=== PATIENT | female | born 1970 | race Caucasian/White ===

== ENCOUNTER → 2017-09-12 | Outpatient (CLI) | payer BC ==
[2017-09-12 16:39] VITALS: BP 125/82; PULSE 68; TEMP 98; BMI 32.4
--- NOTE | 2017-09-12 17:31 | P.HPOB ---
History of Present Illness H&P Date: 09/12/17 Chief Complaint: Patient is here for routine gynecologic exam. This is a 47-year-old G3 PIII with an LMP of 09/05/2017. The patient's last normal menstrual period was in July 2014. She is currently not sexually active and is not seeing anybody at this time. Previous FSH testing on 07/21/2015 was 67 and consistent with early menopause. She previously had hot flashes but these have resolved. She states the bleeding that started on 09/05/2017 was very much like a menstrual period, and is now like the end of a period. She did feel that this was slightly more crampy than what she remembered her periods being like. She is otherwise without gynecologic complaints. Review of Systems The patient's weight has been stable over the last year. She denies respiratory , cardiac, or G.I. problems. Past Medical History Past Medical History: No Reported History Additional Past Medical History / Comment(s): Past STOCKKEEPER history: she has no history of STDs. Her last Pap smear on 07/21/2015 showed ascus with positive high-risk HPV. Colposcopic examination at the time was done by Dr. Paredes and was benign. History of Any Multi-Drug Resistant Organisms: None Reported Past Surgical History: No Surgical Hx Reported Past Psychological History: No Psychological Hx Reported Smoking Status: Never smoker Past Alcohol Use History: Rare (2 per month) Past Drug Use History: None Reported Additional History: She has been twice is currently not seeing anybody at this time. 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 - Past Family History Mother Family Medical History: Diabetes Mellitus Additional Family Medical History / Comment(s): Maternal grandmother had breast cancer. Father Family Medical History: CVA/TIA Additional Family Medical History / Comment(s): Paternal grandmother had heart disease. Medications and Allergies Home Medications Medication Instructions Recorded Confirmed Type busPIRone HCl [Buspar] mg PO DIRECTED 09/12/17 History Allergies Allergy/AdvReac Type Severity Reaction Status Date / Time amoxicillin AdvReac Severe Rash/Hives Unverified 09/12/17 16:18 fexofenadine [From Amber-D] AdvReac Severe Rash/Hives Unverified 09/12/17 16: 18 pseudoephedrine AdvReac Severe Rash/Hives Unverified 09/12/17 16:18 [From Amber-D] Exam Vital Signs Temp Pulse BP 09/12/17 16:30 98.0 F 68 125/82 Intake and Output 09/12/17 09/12/17 09/12/17 06:59 14:59 22:59 Other: Weight 91.172 kg Height 5'6", BMI 32.4. This is a well-developed well-nourished white female who is alert and oriented times 3 in no acute distress. HEENT: Within normal limits. NECK: Supple without mass or thyromegaly. CHEST AND LUNGS: Clear to auscultation. HEART: Regular rate and rhythm. BREASTS: Are without mass or discharge. AXILLARY EXAM: Negative for adenopathy. BACK: Negative for CVA tenderness. ABDOMEN: Soft, nontender, without palpable masses. PELVIC EXAM: Normal external genitalia with dried menstrual blood. Cervix and vagina appear normal with small amount of menstrual blood. There is otherwise no unusual discharge. There is no evidence of prolapse. The uterus is midposition, nongravid size and nontender. There are no palpable adnexal masses or tenderness. RECTAL EXAM: rectovaginal exam is negative for mass or tenderness testing for cold blood was deferred because of the menstrual blood. EXTREMITIES: Nontender. IMPRESSION: 1. 47-year-old female with menstrual type bleed after 2 years of amenorrhea. Postmenopausal bleeding. This possibly could represent some remaining ovarian function, however I believe workup is still necessary. 2. Normal gynecologic exam. 3. Previous ascus Pap smear with positive high-risk HPV testing and benign colposcopic examination. PLAN: 1. Pap smear was performed. High-risk HPV testing will also be included (co- test). 2. Breast awareness was discussed. 3. Patient is scheduled for her screening mammogram on 10/06/2017. The order slip was given to the patient. 4. The patient will be scheduled for endometrial biopsy. If this is benign without hyperplasia, consider conservative management with observation. If hyperplasia without atypia or recurrent bleeding with benign pathology, consider cyclic progestogen treatment. If hyperplasia with atypia or carcinoma , she will be referred for hysterectomy. The endometrial biopsy will be tentatively scheduled for tomorrow. 5. She will also return annually and PRN.
== END | disposition home or self-care (01) ==
LOC: WWCWWP 16:00
PROVIDERS: ATTEND Obstetrics & Gynecology
DX: Z53.9 Procedure and treatment not carried out, unspecified reason (principal)

== ENCOUNTER → 2017-09-13 | Day surgery (SDC) | payer BC ==
--- NOTE | 2017-09-13 13:25 | P.PCN ---
Date of Procedure: 09/13/17 Preoperative Diagnosis: Postmenopausal bleeding Postoperative Diagnosis: Postmenopausal bleeding Procedure(s) Performed: Endometrial biopsy Anesthesia: none Surgeon: Curtis Marquez Estimated Blood Loss (ml): 1 Pathology: other (Endometrial tissue) Condition: stable Disposition: same day Indications for Procedure: This was a 47-year-old G3 PIII with the last normal menstrual period of 2014. Patient had menstrual like bleeding which started on 09/05/2017. The bleeding is now light. Endometrial sampling was done for postmenopausal bleeding. Operative Findings: With bimanual exam, the uterus is mid-positioned, non-gravid size and nontender. There are no palpable adnexal masses or tenderness. The uterus sounded to 8 cm. Small to moderate tissue was obtained. Description of Procedure: The endometrial biopsy procedure was described to the patient. All of her questions were answered. The patient was placed in the lithotomy position. Bimanual examination was performed. The uterus is mid-positioned and is non- gravid size. The speculum was inserted and the cervix and vagina were prepped with betadine solution. The 3mm endometrial biopsy curette was placed to the fundus without difficulty. The uterus sounded to 8 cm. A [id number] rotating motion was used and a small to moderate amount of tissue was obtained and sent for pathological examination. The patient tolerated the procedure well. There were no complications. The post procedure vitals are as follows: blood pressure 155/94. pulse 70, temperature 97.8. Post procedure instructions were given to the patient.
[2017-09-13 13:58] VITALS: BP 152/85; PULSE 67; TEMP 97.1; BMI 32.4
--- NOTE | 2017-09-19 16:11 | P.PN ---
Progress Note - Text Progress Note Date: 09/19/17 OUTPATIENT FOLLOW-UP NOTE TEST(S)/RESULTS: endometrial biopsy pathology from 09/13/2017 showed disordered proliferative lining. Pap smear was unsatisfactory because of red blood cells. High-risk HPV was negative. METHOD OF NOTIFICATION: the patient was notified by phone. PATIENT COMMENTS: the patient understands the results and the need to repeat the Pap smear. DIAGNOSIS: benign endometrial biopsy with dysfunctional uterine bleeding. DISCUSSION: we have discussed how this can represent small ovarian function which can make the uterine lining grow slowly with time. PLAN: cyclic progestin therapy. An electronic prescription for Provera 10 mg, 1 PO Q day on days 15 through 26 of the month will be sent to [facility] pharmacy in [place]. [phone] with no refills. The patient will keep a menstrual calendar. She will return in 3 months for reevaluation and to repeat the Pap smear.
== END ==
LOC: WWCWWP 12:07
PROVIDERS: ATTEND Obstetrics & Gynecology
DX: N95.0 Postmenopausal bleeding (principal)
CPT/HCPCS: 88305

== ENCOUNTER → 2017-10-06 | Outpatient (CLI) | payer BC ==
--- NOTE | 2017-10-11 09:50 | MM ---
Reason for exam: screening (asymptomatic). Last mammogram was performed 2 years and 3 months ago. History: Family history of breast cancer in grandmother at age 65. Physical Findings: A clinical breast exam by your physician is recommended on an annual basis and results should be correlated with mammographic findings. MG Screening Mammo w CAD Bilateral CC and MLO view(s) were taken. Technologist: Justine Gómez RT (R)(M) Prior study comparison: July 21, 2015, bilateral MG screening mammo w CAD. There are scattered fibroglandular densities. No significant changes when compared with prior studies. ASSESSMENT: Negative, BI-RAD 1 RECOMMENDATION: Routine screening mammogram of both breasts in 1 year.
== END | disposition home or self-care (01) ==
LOC: RADMAMWWP 07:08
PROVIDERS: ATTEND Obstetrics & Gynecology
DX: Z12.31 Encounter for screening mammogram for malignant neoplasm of breast (principal)
CPT/HCPCS: 77067

== ENCOUNTER 2018-10-04 06:47 | Day surgery (SDC) | payer BC ==
[2018-10-02 13:15] VITALS: BMI 32.3
[~2018-10-04 06:47] MED LIST: LACTATED RINGERS 1,000 ML IV SCH
[2018-10-04 07:18] VITALS: TEMP 97.3
[2018-10-04] MEDS ORDERED: PROPOFOL 10 MG/ML 20 ML VIAL IV ONE (07:47)
[2018-10-04] MEDS ORDERED: LIDOCAINE 1% INJ 10MG/ML (20 ML MDV) ONE (07:47)
--- NOTE | 2018-10-04 07:55 | P.GSHP ---
History of Present Illness H&P Date: 10/04/18 Chief Complaint: Screening colonoscopy This is a 48-year-old female who presents today for screening colonoscopy. She denies any significant GI complaints. Past Medical History Past Medical History: No Reported History Additional Past Medical History / Comment(s): SCREENING History of Any Multi-Drug Resistant Organisms: None Reported Past Surgical History: No Surgical Hx Reported Past Anesthesia/Blood Transfusion Reactions: No Reported Reaction Smoking Status: Never smoker - Past Family History Mother Family Medical History: Diabetes Mellitus Additional Family Medical History / Comment(s): Maternal grandmother had breast cancer. Father Family Medical History: CVA/TIA Additional Family Medical History / Comment(s): Paternal grandmother had heart disease. Medications and Allergies Home Medications Medication Instructions Recorded Confirmed Type busPIRone HCl [Buspar] 5 mg PO DAILY 09/12/17 10/04/18 History Allergies Allergy/AdvReac Type Severity Reaction Status Date / Time amoxicillin AdvReac Severe Rash/Hives Unverified 10/02/18 13:05 fexofenadine [From Amber-D] AdvReac Severe Rash/Hives Unverified 10/02/18 13:05 pseudoephedrine AdvReac Severe Rash/Hives Unverified 10/02/18 13:05 [From Amber-D] Surgical - Exam Vital Signs Temp Pulse Resp BP Pulse Ox 97.3 F L 69 17 149/90 95 10/04/18 07:16 10/04/18 07:16 10/04/18 07:16 10/04/18 07:16 10/04/18 07:16 - General well developed, well nourished, no distress - Eyes PERRL - ENT normal pinna - Neck no masses - Respiratory normal expansion - Cardiovascular Rhythm: regular - Abdomen Abdomen: soft, non tender Assessment and Plan Assessment: We'll perform screening colonoscopy.
--- NOTE | 2018-10-04 08:14 | P.OP ---
Date of Procedure: 10/04/18 Preoperative Diagnosis: Screening colonoscopy Postoperative Diagnosis: Normal colon Procedure(s) Performed: Colonoscopy Anesthesia: MAC Surgeon: Jose Malik Pathology: none sent Condition: stable Disposition: PACU Description of Procedure: PROCEDURE: The patient was placed on the endoscopy table in the lateral position. Digital rectal examination was performed which revealed no abnormalities. . Flexible colonoscope was then placed in the patient's anus and passed throughout the colon. The scope could not be placed into the ileocecal valve secondary to tortuosity valve. At this point scope was withdrawn. The , ascending, transverse, descending and sigmoid colon were normal. The rectum was normal as well. There were no masses, polyps or diverticula noted in the entire colon.
[2018-10-04 08:33] VITALS: RESP 18
[2018-10-04 08:40] VITALS: BP 139/82; PULSE 68
== END 2018-10-04 08:47 | disposition home or self-care (01) ==
LOC: ORWHC2ENDO 06:47
PROVIDERS: ATTEND Surgery
DX: Z12.11 Encounter for screening for malignant neoplasm of colon (principal); Z79.899 Other long term (current) drug therapy; Z88.0 Allergy status to penicillin; Z88.8 Allergy status to other drugs, medicaments and biological substances; Z83.3 Family history of diabetes mellitus; Z82.49 Family history of ischemic heart disease and other diseases of the circulatory system
CPT/HCPCS: G0121; J2001; J2704

== ENCOUNTER → 2021-04-09 | Outpatient (CLI) | payer BC ==
--- NOTE | 2021-04-09 12:20 | NM ---
EXAMINATION TYPE: NM stress lexiscan cardiolite DATE OF EXAM: 04/09/2021 COMPARISON: NONE HISTORY: I20.8 R06.00 R06.02 R07.89 TECHNIQUE: After the intravenous administration of 9.9 mCi Tc 99m Sestamibi - Cardiolite resting SPE CT images acquired 45 minutes post injection. The patient received 0.4mg Lexiscan, 25.2 mCi Tc 99m Sestamibi - Stress images obtained [address] injection FINDINGS: Review of stress and rest SPECT images demonstrates decreased perfusion inferoapical wall. Stress-ind uced ischemia is not excluded. Gated analysis shows normal wall motion with an estimated left ventric ular ejection fraction of 57 %. IMPRESSION: decreased perfusion inferoapical wall. Stress-induced ischemia is not excluded.
--- NOTE | 2021-04-09 13:17 | EST ---
EXERCISE STRESS AGE: 31 SEX: F HT: 4'8" WT: 210 lbs. PROTOCOL: Lexiscan STAGE: NA DURATION OF EXERCISE: NA HEART RATE REST: 92 BLOOD PRESSURE REST: 150/91 MAXIMUM HEART RATE ACHIEVED: 119 MAXIMUM BLOOD PRESSURE: 150/91 85% MPHR: 142 100% MPHR: 167 METS: NA INDICATIONS: Chest pain CLINICAL INFORMATION: Baseline rhythm is sinus mechanism, rate of 92, left bundle branch block. Baseline blood pressure 150/91 mmHg. Patient received injection of Lexiscan. Electrocardiographic monitoring revealed no evidence of diagnostic ischemic ST deviation. Cardiolite was injected per protocol. CONCLUSION: 1. Nondiagnostic electrocardiograph stress testing. 2. Nuclear images will be reported separately. MMODL / IJN: [id number] /
== END | disposition home or self-care (01) ==
LOC: RADNMMAIN 07:51
PROVIDERS: ATTEND Family Medicine
DX: I20.8 Other forms of angina pectoris (principal); R06.00 Dyspnea, unspecified; R06.02 Shortness of breath; R07.89 Other chest pain
CPT/HCPCS: 93017; 78452; A9500

== ENCOUNTER 2022-10-03 19:02 | Emergency (ER) | payer BC ==
--- NOTE | 2022-10-03 19:09 | ED ---
General Adult HPI - General Source: RN notes reviewed <Eloisa Drake - Last Filed: 10/03/22 19:07> <Silvana Randle - Last Filed: 10/06/22 16:56> - General Stated complaint: fall-wrist injury Time Seen by Provider: 10/03/22 19:07 - History of Present Illness Initial comments: 52 year old female with no significant past medical history presents to the emergency department with left wrist pain. She fell while doing yard work and slipped in mud. Denies hitting her head, LOC, anticoagulation. (Eloisa Drake) 52-year-old female presenting with chief complaint of left wrist pain. Patient states that she was doing yard work when she slipped on Monday and fell. She denies any head injury, loss of consciousness, use of blood thinners. No other extremities affected. No numbness or tingling. No obvious deformity. No bruising. (Silvana Randle) - Related Data Home Medications Medication Instructions Recorded Confirmed busPIRone HCl [Buspar] 5 mg PO DAILY 09/12/17 10/04/18 Allergies Allergy/AdvReac Type Severity Reaction Status Date / Time amoxicillin AdvReac Severe Rash/Hives Verified 10/03/22 19:11 fexofenadine [From Amber-D] AdvReac Severe Rash/Hives Verified 10/03/22 19:11 pseudoephedrine AdvReac Severe Rash/Hives Verified 10/03/22 19:11 [From Amber-D] Review of Systems ROS Other: All systems not noted in ROS Statement are negative. <Eloisa Drake - Last Filed: 10/03/22 19:07> ROS Other: All systems not noted in ROS Statement are negative. <Silvana Randle - Last Filed: 10/06/22 16:56> ROS Statement: Those systems with pertinent positive or pertinent negative responses have been documented in the HPI. Past Medical History Past Medical History: No Reported History Additional Past Medical History / Comment(s): SCREENING History of Any Multi-Drug Resistant Organisms: None Reported Past Surgical History: No Surgical Hx Reported Past Anesthesia/Blood Transfusion Reactions: No Reported Reaction Past Psychological History: No Psychological Hx Reported Past Alcohol Use History: Rare Past Drug Use History: None Reported - Past Family History Mother Family Medical History: Diabetes Mellitus Additional Family Medical History / Comment(s): Maternal grandmother had breast cancer. Father Family Medical History: CVA/TIA Additional Family Medical History / Comment(s): Paternal grandmother had heart disease. <Eloisa Drake - Last Filed: 10/03/22 19:07> General Exam <Eloisa Drake - Last Filed: 10/03/22 19:07> Limitations: no limitations General appearance: alert, in no apparent distress Head exam: Present: atraumatic, normocephalic, normal inspection Eye exam: Present: normal appearance, EOMI. Absent: scleral icterus, periorbital swelling Neck exam: Present: normal inspection, full ROM Respiratory exam: Absent: respiratory distress Left Forearm Wrist exam: Present: normal inspection, tenderness. Absent: full ROM, swelling, deformity, tenderness over anatomical snuff box Neurological exam: Present: alert, oriented X3, CN II-XII intact Psychiatric exam: Present: normal affect, normal mood Skin exam: Present: warm, dry, intact, normal color. Absent: rash <Silvana Randle - Last Filed: 10/06/22 16:56> - General Exam Comments Initial Comments: Visual Physical Exam Vital signs reviewed General: Well-appearing, nontoxic, no acute distress. Head: Normocephalic, atraumatic Eyes: PERRLA, EOMI ENT: Airway patent Chest: Nonlabored breathing Skin: No visual rash, normal skin tone Neuro: Alert and oriented 3 Musculoskeletal: No gross abnormalities I performed the quick note portion of this exam, verbal signature Eloisa Drake PA-C (Eloisa Drake) Course Vital Signs 10/03/22 10/03/22 19:07 21:05 Temperature 98.3 F 98.2 F Pulse Rate 84 70 Respiratory 20 18 Rate Blood Pressure 156/93 148/90 O2 Sat by Pulse 99 99 Oximetry Medical Decision Making <Silvana Randle - Last Filed: 10/06/22 16:56> - Medical Decision Making Was pt. sent in by a medical professional or institution (CARTER Kuo, EXTERIOR INTERIOR SPECIALIST, urgent care, hospital, or care home...) When possible be specific @ -No Did you speak to anyone other than the patient for history (EMS, parent, family, police, friend...)? What history was obtained from this source @ -No Did you review nursing and triage notes (agree or disagree)? Why? @ -I reviewed and agree with nursing and triage notes Were old charts reviewed (outside hosp., previous admission, EMS record, old EKG, old radiological studies, urgent care reports/EKG's, care home records)? Report findings @ -No old charts were reviewed Differential Diagnosis (chest pain, altered mental status, abdominal pain women, abdominal pain men, vaginal bleeding, weakness, fever, dyspnea, syncope, headache, dizziness, GI bleed, back pain, seizure, CVA, palpatations, mental health, musculoskeletal)? @ -Differential Musculoskeletal Muscular strain, contusion, ligament sprain, fracture, arthritis, septic arthritis, bursitis, cellulitis, muscle spasm, nerve compression, DVT, arterial occlusion, herpes zoster, electrolyte abnormality, tumor.... This is not meant to be in all inclusive list EKG interpreted by me (3pts min.). @ -As above X-rays interpreted by me (1pt min.). @ -X-ray shows no fracture or dislocation CT interpreted by me (1pt min.). @ -None done U/S interpreted by me (1pt. min.). @ -None done What testing was considered but not performed or refused? (CT, X-rays, U/S, labs)? Why? @ -None What meds were considered but not given or refused? Why? @ -None Did you discuss the management of the patient with other professionals (professionals i.e. , PA, EXTERIOR INTERIOR SPECIALIST, lab, RT, psych nurse, oncology social worker, synthetic soil blocks pulper, teacher, mortgage loan officer originator, piano case and bench assembler)? Give summary @ -No Was smoking cessation discussed for >3mins.? @ -No Was critical care preformed (if so, how long)? @ -No Were there social determinants of health that impacted care today? How? (Homelessness, low income, unemployed, alcoholism, drug addiction, transportation, low edu. Level, literacy, decrease access to med. care, prison, rehab)? @ -No Was there de-escalation of care discussed even if they declined (Discuss DNR or withdrawal of care, Hospice)? DNR status @ -No What co-morbidities impacted this encounter? (DM, HTN, Smoking, COPD, CAD, Cancer, CVA, ARF, Chemo, Hep., AIDS, mental health diagnosis, sleep apnea, morbid obesity)? @ -None Was patient admitted / discharged? Hospital course, mention meds given and route, prescriptions, significant lab abnormalities, going to OR and other pertinent info. @ -52-year-old female presenting with chief complaint of left wrist injury. On physical examination there is no snuff box tenderness. She is neurovascularly intact. X-ray negative for fracture or dislocation. Patient is educated on supportive management at home. Follow-up with PCP. Report back to ER with any new or worsening symptoms. Discussed return parameters and answered all questions. Patient conveyed verbal understanding and agreed to the plan. I discussed this case in detail with my attending Dr. Boudreaux Undiagnosed new problem with uncertain prognosis? @ -No Drug Therapy requiring intensive monitoring for toxicity (Heparin, Nitro, Insulin, Cardizem)? @ -No Were any procedures done? @ -No Diagnosis/symptom? @ -Wrist sprain Acute, or Chronic, or Acute on Chronic? @ -acute Uncomplicated (without systemic symptoms) or Complicated (systemic symptoms)? @ -Uncomplicated Side effects of treatment? @ -No Exacerbation, Progression, or Severe Exacerbation? @ -No Poses a threat to life or bodily function? How? (Chest pain, [place], [place], pneumonia, PE, COPD, DKA, ARF, appy, cholecystitis, CVA, Diverticulitis, Homicidal, Suicidal, threat to staff... and all critical care pts) @ -No (Silvana Randle) Disposition <Eloisa Drake - Last Filed: 10/03/22 19:07> Is patient prescribed a controlled substance at d/c from ED?: No Time of Disposition: 20:59 <Silvana Randle - Last Filed: 10/06/22 16:56> Clinical Impression: Wrist sprain Disposition: HOME SELF-CARE Condition: Good Instructions (If sedation given, give patient instructions): Wrist Sprain (ED) Additional Instructions: Follow up with PCP. Report back to ER with any new or worsening symptoms. Rest, ice, compress, and elevate the wrist. Take Motrin and Tylenol for pain control. Referrals: None,Stated [REFERRING] - 1-2 days
--- NOTE | 2022-10-03 19:26 | XR ---
EXAMINATION TYPE: XR wrist complete LT DATE OF EXAM: 10/03/2022 7:19 PM INDICATION: Patient age:Female; 52 years old; Reason for study: left wrist pain; PHH. COMPARISON: None TECHNIQUE: left wrist was examined in the. Frontal, navicular, lateral, and oblique. FINDINGS: No acute osseous pathology, joint dislocation, or joint effusion. No evidence of any soft tissue swelling is seen. Ulnar negative variance. IMPRESSION: 1. No acute osseous pathology. 2. Ulnar negative variance.
[2022-10-03 21:07] VITALS: BP 148/90; PULSE 70; RESP 18; TEMP 98.2
== END 2022-10-03 21:30 | disposition home or self-care (01) ==
LOC: EC 19:02
DX: S63.502A Unspecified sprain of left wrist, initial encounter (principal); Z88.0 Allergy status to penicillin; Z88.8 Allergy status to other drugs, medicaments and biological substances; W01.0XXA Fall on same level from slipping, tripping and stumbling without subsequent striking against object, initial encounter
CPT/HCPCS: 99283

== ENCOUNTER → 2022-12-02 | Outpatient (CLI) | payer BC ==
--- NOTE | 2022-12-05 08:54 | MM ---
Reason for Exam: Screening (asymptomatic). Last mammogram was performed 5 year(s) and 2 month(s) ago. Patient History: Menarche at age 10. First Full-Term at age 22. Postmenopausal. Hormonal Contraceptives, from age 43 until age 45. Maternal grandmother had breast cancer, age 65. Risk Values: Erica 5 year model risk: 1.0%. NCI Lifetime model risk: 7.5%. Prior Study Comparison: 02/14/2006 Bilateral Screening Mammogram, [facility]. 07/21/2015 Bilateral Screening Mammogram, [facility]. 10/06/2017 Bilateral Screening Mammogram, [facility]. Tissue Density: There are scattered fibroglandular densities. Findings: Analyzed By CAD. There is no suspicious group of microcalcifications or new suspicious mass. Overall Assessment: Negative, BI-RAD 1 Management: Screening Mammogram of both breasts in [address] [facility] will attempt to contact patient to return for supplemental views and ultrasound if indicated. Patient should continue monthly self-breast exams. A clinical breast exam by your physician is recommended on an annual basis. This exam should not preclude additional follow-up of suspicious palpable abnormalities. Note on Erica scores and lifetime risk: 1. A Erica score greater than 3% is considered moderate risk. If this is the case, consider specialist referral to assess eligibility for a risk reducing agent. 2. If overall lifetime risk for the development of breast cancer is 20% or higher, the patient may qualify for future screening with alternating mammogram and breast MRI. Electronically signed and approved by: Scott Talavera DO
== END | disposition home or self-care (01) ==
LOC: RADMAMWWP 10:07
PROVIDERS: ATTEND Family Medicine
DX: Z12.31 Encounter for screening mammogram for malignant neoplasm of breast (principal); Z78.0 Asymptomatic menopausal state; Z80.3 Family history of malignant neoplasm of breast
CPT/HCPCS: 77067

== ENCOUNTER → 2023-04-05 | Outpatient (CLI) | payer BC ==
--- NOTE | 2023-04-05 16:13 | CT ---
EXAMINATION TYPE: CT sinus wo con DATE OF EXAM: 04/05/2023 COMPARISON: 04/05/2023. HISTORY: Chronic sinusitis. CT DLP: 394 mGycm. Automated Exposure Control for Dose Reduction was Utilized. TECHNIQUE: CT scan of the sinuses is performed without contrast, axial images are obtained, coronal r eformatted images are also reviewed. FINDINGS: The paranasal sinuses including the frontal, ethmoid, sphenoid, and maxillary sinuses bila terally are well-aerated without abnormal opacification. The ostiomeatal complex is patent bilateral ly on the coronal images. Visualized portion of mastoid air cells show no abnormal opacification. The globes are intact bilate rally. IMPRESSION: The sinuses are clear and the ostiomeatal complex is patent bilaterally.
== END | disposition home or self-care (01) ==
LOC: RADCTMAIN 15:28
PROVIDERS: ATTEND Otolaryngology
DX: J32.0 Chronic maxillary sinusitis (principal); J32.9 Chronic sinusitis, unspecified
CPT/HCPCS: 70486

== ENCOUNTER → 2024-02-15 | Outpatient (CLI) | payer BC ==
--- NOTE | 2024-02-15 18:39 | MM ---
Reason for Exam: Screening (asymptomatic). Last mammogram was performed 1 year(s) and 3 month(s) ago. Patient History: Menarche at age 10. First Full-Term at age 22. Postmenopausal. Hormonal Contraceptives, from age 43 until age 45. Maternal grandmother had breast cancer, age 65. Risk Values: Erica 5 year model risk: 1.1%. NCI Lifetime model risk: 7.4%. Prior Study Comparison: 07/21/2015 Bilateral Screening Mammogram, [facility]. 10/06/2017 Bilateral Screening Mammogram, [facility]. 12/02/2022 Bilateral MG screening mammo w CAD, [facility]. Tissue Density: There are scattered areas of fibroglandular density. Findings: Analyzed By CAD. The pattern is symmetrical. No significant interval change No suspicious groups of microcalcifications, spiculated or lobular masses, architectural distortion or other secondary signs of malignancy are mammographically apparent. Overall Assessment: Benign, BI-RAD 2 Management: Screening Mammogram of both breasts in 1 year. A negative mammogram report should not preclude additional follow up of suspicious palpable abnormalities. Patient should continue monthly self breast exam. A clinical breast exam by your physician is recommended on an annual basis and results should be correlated with mammographic findings. Note on Erica scores and lifetime risk: 1. A Erica score greater than 3% is considered moderate risk. If this is the case, consider specialist referral to assess eligibility for a risk reducing agent. 2. If overall lifetime risk for the development of breast cancer is 20% or higher, the patient may qualify for future screening with alternating mammogram and breast MRI. [facility], , 02/15/2024 6:37 PM. Electronically signed and approved by: Ephraim Frazier D.O. Radiologis
== END | disposition home or self-care (01) ==
LOC: RADMAMWWP 09:56
PROVIDERS: ATTEND Family Medicine
DX: Z12.31 Encounter for screening mammogram for malignant neoplasm of breast (principal); Z78.0 Asymptomatic menopausal state; Z80.3 Family history of malignant neoplasm of breast; R92.323 Mammographic fibroglandular density, bilateral breasts
CPT/HCPCS: 77067